=== PATIENT | male | born 1995 | race Caucasian/White ===

== ENCOUNTER 2019-08-27 19:16 | Emergency (ER) | payer SELFPAY ==
[2019-08-27 19:26] VITALS: BP 133/77; PULSE 93; RESP 16; TEMP 36.8; O2SAT 99; BMI 23.6
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
[2019-08-27 20:01] VITALS: RESP 16
== END 2019-08-27 20:02 | disposition home or self-care (01) ==
PROVIDERS: Emergency Provider Physician Assistant; PCP Nurse Practitioner Family
DX: T21.22XA Burn of second degree of abdominal wall, initial encounter (principal); T22.291A Burn of second degree of multiple sites of right shoulder and upper limb, except wrist and hand, initial encounter; T24.291A Burn of second degree of multiple sites of right lower limb, except ankle and foot, initial encounter; X08.8XXA Exposure to other specified smoke, fire and flames, initial encounter; F17.210 Nicotine dependence, cigarettes, uncomplicated
CPT/HCPCS: 12345; 99281; 99282

== ENCOUNTER 2021-01-13 01:50 | Emergency (ER) | payer SELFPAY ==
[2021-01-13 02:00] VITALS: BP 138/81; PULSE 114; RESP 20; TEMP 36.1; O2SAT 94; BMI 23.6
--- NOTE | 2021-01-13 02:34 | XRR_ITS ---
PROCEDURE INFORMATION: Exam: XR Cervical Spine Exam date and time: 01/13/2021 2:34 AM Age: 25 years old Clinical indication: Patient HX: C/O neck pain after lifting a recliner several days ago TECHNIQUE: Imaging protocol: XR of the cervical spine. Views: 2 or 3 views. COMPARISON: No relevant prior studies available. FINDINGS: Bones/joints: Normal. No acute fracture. Normal alignment. Soft tissues: Unremarkable. XR/XR cervical spine 3V* [id number] IMPRESSION: No acute findings. Radiation Dose CTDIVOL = (mGy): DLP = (mGy-cm)
--- NOTE | 2021-01-13 02:47 | W.ED.NECK ---
HPI - Neck Pain/Injury General: Chief Complaint: Neck Pain/Injury Stated Complaint: Neck Injury Time Seen by Provider: 01/13/21 01:58 History of Present Illness: HPI Narrative: 25-year-old male states that he lifted a recliner over his head around a week ago. He heard a pop, and has experienced upper and mid neck pain in the midline and just to the right since that time. He hears a grinding sensation in his upper neck when turning his head. He is experiencing stiffness with movement as well. He denies any fever. No paresthesias. No weakness. No radicular symptoms. No headache. No dizziness. MD complaint: neck pain Onset (ago): day(s) Place: home Radiation: right lateral Severity: moderate Quality: aching and other Duration: constant and progressively worsening Relieving factors: none Exacerbating factors: movement of neck Context: other Associated symptoms: Denies dysphagia, difficulty walking, dizziness, fevers/chills, headache(s), nausea, tingling or weakness Treatments prior to arrival: none Review of Systems Const: Denies: fever(s) or chills Eyes: Denies: change in vision Card: Denies: chest pain GI: Denies: nausea or dysphagia Neuro: Denies: headache(s), difficulty walking or dizziness PFSH ED PFSH: Surgical History History of surgery on arm left arm Social History Smoking and tobacco status: current every day smoker cigarettes Packs smoked per day: 2 Alcohol intake: never Lives independently: Yes Housing: House Marital status: Single History of recent travel: No Physical Exam Const: COMMON NORMALS: no acute distress, patient oriented x3 and alert HENMT: COMMON NORMALS: normocephalic and atraumatic HEAD & SCALP: normocephalic and atraumatic Eye: COMMON NORMALS: Equal, round and reactive pupils present and EOMs intact bilaterally PUPIL: Yes Equal, round and reactive pupils present Neck/C-Spine: COMMON NORMALS: full ROM GENERAL: Yes normal visual inspection and Yes trachea midline CERVICAL SPINE: Yes cervical ROM normal, Yes Cervical spine tenderness (Mild C1-C2, mild C5), No step off deformity and No Paracervical spasm Chest: COMMONS NORMALS: normal inspection of the chest Resp: COMMON NORMALS: normal respiratory effort and No use of accessory muscles Cardio: COMMON NORMALS: regular rate and regular rhythm RATE: regular rate RHYTHM: regular rhythm Neuro: COMMON NORMALS: patient oriented x3 SENSORIUM/ORIENTATION: Yes alert Course Vital Signs: Vital signs: Vital Signs Temperature 96.9 F L 01/13/21 02:00 Pulse Rate 114 H 01/13/21 02:00 Respiratory Rate 20 H 01/13/21 02:00 Blood Pressure 138/81 01/13/21 02:00 Pulse Oximetry 94 01/13/21 02:00 MDM - Neck Pain/Injury MDM Narrative: Medical decision making narrative: Exam is benign. Pt has full ROM Xray C spine IMPRESSION: No acute findings. Discharge Plan Discharge Patient Disposition: Home Clinical Impression: Strain of neck muscle Qualifiers: Encounter type: initial encounter Qualified Code(s): S16.1XXA - Strain of muscle, fascia and tendon at neck level, initial encounter Condition: Stable Prescriptions: No Action doxycycline hyclate 100 mg capsule 100 mg PO BID 10 Days Qty: 20 RF: 0 albuterol sulfate [ProAir HFA] 90 mcg/actuation HFA aerosol inhaler 2 puff inhalation QID PRN (Reason: shortness of breath or wheezing) 30 Days Qty: 6.7 RF: 2 prednisone 10 mg tablets,dose pack See Rx Instructions PO PER PKG DIR Qty: 21 RF: 0 Discharge Orders: Discharge ED (Routine); Ordered 01/13/21 Ordered By: Marquis Wright Referrals: Denia Figueredo FNP-C [Primary Care Provider] - 4-7 days Patient Instructions: Cervical Strain Activity Restrictions/Additional Instructions: Return for worsening headache, mental status changes, extreme headache, weakness to an extremity, other concerning symptoms. Follow-up with your doctor if symptoms persist. Coding Level of Care Code ED Student Services Counselor for Mario Fwedson Exam Detailed
[2021-01-13 03:43] VITALS: BP 100/70; PULSE 80; RESP 18; O2SAT 97
== END 2021-01-13 03:49 | disposition home or self-care (01) ==
PROVIDERS: Emergency Provider Emergency Medicine; PCP Nurse Practitioner Family
DX: S16.1XXA Strain of muscle, fascia and tendon at neck level, initial encounter (principal); F17.210 Nicotine dependence, cigarettes, uncomplicated; X50.0XXA Overexertion from strenuous movement or load, initial encounter
CPT/HCPCS: 72040; 99282

== ENCOUNTER 2021-03-03 11:31 | Emergency (ER) | payer SELFPAY ==
[2021-03-03 12:04] VITALS: BP 120/81; RESP 18; TEMP 36.7; O2SAT 98; BMI 23.2
--- NOTE | 2021-03-03 12:20 | ED_ITS ---
HPI - General Adult General: Chief complaint: General Medical Stated complaint: GROWTH ON L EAR Time Seen by Provider: 03/03/21 12:14 History of Present Illness: HPI narrative: Patient presents with a cyst that in front of his right earlobe been present times a year it got bigger over the last few days Onset (ago): year(s) Associated symptoms: Reports no associated symptoms Review of Systems Const: Denies: fever(s) or chills Skin/Breast: Reports: skin tenderness (In front her right earlobe, cyst present x1 year) Psych: Denies: anxiety or depression PFS ED PFSH: Surgical History History of surgery on arm left arm Social History Smoking and tobacco status: current every day smoker cigarettes Packs smoked per day: 2 Alcohol intake: never Lives independently: Yes Housing: House Marital status: Single History of recent travel: No Physical Exam Const: COMMON NORMALS: no acute distress Psych: COMMON NORMALS: mental status grossly normal Skin: OTHER: Patient has a small lump in front of his right earlobe underneath the skin. It is tender. There is no erythema redness noted to it. No drainage. Consistent with an inclusion cyst. Course Vital Signs: Vital signs: Vital Signs Temperature 98.1 F 03/03/21 12:04 Respiratory Rate 18 03/03/21 12:04 Blood Pressure 120/81 03/03/21 12:04 Pulse Oximetry 98 03/03/21 12:04 Discharge Plan Discharge Patient Disposition: Home Clinical Impression: Sebaceous cyst Condition: Stable Prescriptions: No Action doxycycline hyclate 100 mg capsule 100 mg PO BID 10 Days Qty: 20 RF: 0 albuterol sulfate [ProAir HFA] 90 mcg/actuation HFA aerosol inhaler 2 puff inhalation QID PRN (Reason: shortness of breath or wheezing) 30 Days Qty: 6.7 RF: 2 prednisone 10 mg tablets,dose pack See Rx Instructions PO PER PKG DIR Qty: 21 RF: 0 Discharge Orders: Discharge ED (Routine); Ordered 03/03/21 Ordered By: Joe Welsh Referrals: Denia Figueredo FNP-C [Primary Care Provider] - Discharge Diet: Usual diet Discharge Activity: Resume usual activity Patient Instructions: Epidermal Inclusion Cysts (ED) Activity Restrictions/Additional Instructions: Follow-up your primary care provider or laboratory animal facility supervisor they have cyst resolved. Coding Level of Care Code ED Qi Specialist for Mario Heck
--- NOTE | 2021-03-03 12:29 | PC.NURSE ---
reviewed discharge with patient, pt verbalized understanding of all instructions and follow up. pt ambulated with belongings from the ED
== END 2021-03-03 12:32 | disposition home or self-care (01) ==
PROVIDERS: Emergency Provider Nurse Practitioner Family; PCP Nurse Practitioner Family
DX: L72.3 Sebaceous cyst (principal); F17.210 Nicotine dependence, cigarettes, uncomplicated
CPT/HCPCS: 99282

== ENCOUNTER 2021-07-09 11:27 | Emergency (ER) | payer SELFPAY ==
[2021-07-09 11:46] VITALS: BP 119/78; PULSE 87; RESP 18; TEMP 36.6; O2SAT 98; BMI 26.6
[2021-07-09 11:59] VITALS: BP 119/78; PULSE 87; RESP 18; O2SAT 98
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
== END 2021-07-09 12:24 | disposition home or self-care (01) ==
PROVIDERS: Emergency Provider Physician Assistant; PCP Nurse Practitioner Family
DX: K08.89 Other specified disorders of teeth and supporting structures (principal); K02.9 Dental caries, unspecified; R59.1 Generalized enlarged lymph nodes; S02.5XXA Fracture of tooth (traumatic), initial encounter for closed fracture; X58.XXXA Exposure to other specified factors, initial encounter
CPT/HCPCS: 99283

== ENCOUNTER → 2021-08-20 15:52 | Outpatient (BNVA) | payer SELFPAY | PROVIDERS: PCP Nurse Practitioner Family; Visit Provider Nurse Practitioner Family | DX: J02.9 Acute pharyngitis, unspecified (principal); J40 Bronchitis, not specified as acute or chronic; K59.00 Constipation, unspecified | CPT/HCPCS: 87071; 87880 ==

== ENCOUNTER → 2021-08-27 15:37 | Outpatient (BNVA) | payer SELFPAY | PROVIDERS: PCP Nurse Practitioner Family; Visit Provider Nurse Practitioner Family | DX: K59.00 Constipation, unspecified (principal) | CPT/HCPCS: 80053; 84443; 85025 ==

== ENCOUNTER 2021-08-28 08:42 | Outpatient (CLI) | payer SELFPAY ==
--- NOTE | 2021-08-28 09:02 | XR_ITS ---
WS: [id number] XR abdomen 1V* [id number] REASON FOR EXAM: K59.00 - Constipation, unspecified FINDINGS: No free air or retroperitoneal air. Unremarkable bowel gas pattern. No significant calcifications in the abdomen or pelvis. No mass identified. Normal lumbar spine and bony pelvis. XR/XR abdomen 1V* [id number] IMPRESSION: No significant abnormality.
== END 2021-08-28 08:43 | disposition home or self-care (01) ==
PROVIDERS: PCP Nurse Practitioner Family; Visit Provider Nurse Practitioner Family
DX: K59.00 Constipation, unspecified (principal)
CPT/HCPCS: 74018

== ENCOUNTER 2021-10-31 14:25 | Emergency (ER) | payer SELFPAY ==
[2021-10-31 14:29] VITALS: BP 127/92; PULSE 112; RESP 16; TEMP 36.6; O2SAT 98
--- NOTE | 2021-10-31 14:34 | ECG_ITS ---
[facility] Test Date: 2021-10-31 Pat Name: Star Lomeli Department: Room: Gender: Male Smutter: : 1995 Requested By: Radny Singh Order Number: [id number] Robin MD: Noa Salter M.D. Measurements Intervals [place] Rate: 97 P: 73 MI: 145 QRS: 76 QRSD: 95 T: -26 QT: 327 QTc: 417 Interpretive Statements SINUS RHYTHM WITH MARKED SINUS ARRHYTHMIA POSSIBLE RIGHT ATRIAL ENLARGEMENT POSSIBLE LEFT ATRIAL ENLARGEMENT POSSIBLE LEFT VENTRICULAR HYPERTROPHY ST DEVIATION AND MODERATE T-WAVE ABNORMALITY, CONSIDER INFERIOR ISCHEMIA No previous ECG available for comparison Electronically Signed On 11-01-2021 13:20:16 CDT by Noa Salter M.D. [id number]
--- NOTE | 2021-10-31 14:53 | XR_ITS ---
WS: [id number] Exam: XR chest 1V portable [id number] Date/Time of Exam: 10/31/2021 2:11 PM Reason For Exam: dyspnea/cough Comparison 03/14/2018. Findings: The lungs are clear and fully expanded. Costophrenic angles are sharp. No infiltrates. Bronchovascula r relief appears normal. Cardiac silhouette is unremarkable. Bony elements are intact. XR/XR chest 1V portable [id number] IMPRESSION: Unremarkable chest radiograph.
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
[2021-10-31 15:37] VITALS: BP 140/92; PULSE 93; RESP 18; O2SAT 99
== END 2021-10-31 15:38 | disposition home or self-care (01) ==
PROVIDERS: Emergency Provider Family Medicine; PCP Nurse Practitioner Family
DX: J45.909 Unspecified asthma, uncomplicated (principal); J31.2 Chronic pharyngitis; F17.210 Nicotine dependence, cigarettes, uncomplicated
CPT/HCPCS: 71045; 93005; 99284

== ENCOUNTER 2021-12-19 09:21 | Emergency (ER) | payer SELFPAY ==
[2021-12-19 09:26] VITALS: BP 124/76; PULSE 88; RESP 14; TEMP 36.4; O2SAT 97; BMI 25.7
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
== END 2021-12-19 09:52 | disposition home or self-care (01) ==
PROVIDERS: Emergency Provider Physician Assistant; PCP Nurse Practitioner Family
DX: Z71.1 Person with feared health complaint in whom no diagnosis is made (principal)
CPT/HCPCS: 99282

== ENCOUNTER 2021-12-22 02:53 | Emergency (ER) | payer SELFPAY ==
[2021-12-22 02:57] VITALS: BP 119/71; PULSE 73; RESP 18; TEMP 36.6; O2SAT 98; BMI 26.4
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
== END 2021-12-22 04:35 | disposition home or self-care (01) ==
PROVIDERS: Emergency Provider Emergency Medicine; PCP Nurse Practitioner Family
DX: R59.0 Localized enlarged lymph nodes (principal)
CPT/HCPCS: 99282

== ENCOUNTER 2022-01-05 09:47 | Emergency (ER) | payer SELFPAY ==
[2022-01-05 10:02] VITALS: BP 114/74; PULSE 102; RESP 18; TEMP 36.6; O2SAT 98
[2022-01-05 10:18] VITALS: PULSE 97; RESP 16; O2SAT 97
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
== END 2022-01-05 11:19 | disposition home or self-care (01) ==
PROVIDERS: Emergency Provider Physician Assistant; PCP Nurse Practitioner Family
DX: J02.9 Acute pharyngitis, unspecified (principal); F17.210 Nicotine dependence, cigarettes, uncomplicated
CPT/HCPCS: 99283

== ENCOUNTER → 2022-01-06 11:35 | Outpatient (BNVA) | payer SELFPAY | PROVIDERS: PCP Nurse Practitioner Family; Visit Provider Nurse Practitioner Family | DX: R59.0 Localized enlarged lymph nodes (principal); J02.9 Acute pharyngitis, unspecified | CPT/HCPCS: 80053; 85025 ==

== ENCOUNTER 2022-02-02 18:52 | Emergency (ER) | payer SELFPAY ==
[2022-02-02 19:16] VITALS: BP 127/84; PULSE 104; RESP 18; TEMP 37; O2SAT 98; BMI 25.4
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
[2022-02-02] MEDS: clindamycin 150 mg Capsule 300 MG PO (20:52)
== END 2022-02-02 20:57 | disposition home or self-care (01) ==
PROVIDERS: Emergency Provider Nurse Practitioner Family; PCP Nurse Practitioner Family
DX: K04.7 Periapical abscess without sinus (principal); F17.210 Nicotine dependence, cigarettes, uncomplicated
CPT/HCPCS: 99283

== ENCOUNTER 2022-07-23 12:14 | Emergency (ER) | payer SELFPAY ==
[2022-07-23 12:32] VITALS: BP 132/88; PULSE 102; RESP 18; TEMP 36.9; O2SAT 99; BMI 28.8
--- NOTE | 2022-07-23 12:37 | XR_ITS ---
WS: [id number] Portable AP upright chest, 07/23/2022 Clinical Data: cough/congestion Comparison: Chest, 10/31/2021 Findings: No nodules, masses or effusions are seen. The heart is normal. The pulmonary vascularity is not increased. No pneumonia or pneumothorax is seen. XR/XR chest 1V portable [id number] Impression: Negative chest.
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
[2022-07-23 13:22] VITALS: BP 132/88; PULSE 95; O2SAT 98
== END 2022-07-23 13:23 | disposition home or self-care (01) ==
PROVIDERS: Emergency Provider Physician Assistant; PCP Nurse Practitioner Family
DX: J40 Bronchitis, not specified as acute or chronic (principal); F17.210 Nicotine dependence, cigarettes, uncomplicated
CPT/HCPCS: 71045; 99283

== ENCOUNTER 2023-01-05 17:34 | Emergency (ER) | payer SELFPAY ==
--- NOTE | 2023-01-05 17:35 | XRR_ITS ---
PROCEDURE INFORMATION: Exam: XR Chest Exam date and time: 01/05/2023 5:48 PM Age: 27 years old Clinical indication: Cough TECHNIQUE: Imaging protocol: Radiologic exam of the chest. Views: 1 view. COMPARISON: CR XR chest 1V portable [id number] 07/23/2022 12:46 PM FINDINGS: Lungs: Unremarkable. No consolidation. Pleural spaces: Unremarkable. No pleural effusion. No pneumothorax. Heart/Mediastinum: Unremarkable. No cardiomegaly. Bones/joints: Visualized osseous structures show no acute abnormality. Other findings: No significant change with previous exam. XR/XR chest 1V portable [id number] IMPRESSION: No acute cardiopulmonary abnormality.
[2023-01-05 17:36] VITALS: BP 159/81; PULSE 86; RESP 16; TEMP 36.7; O2SAT 96; BMI 31.1
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
[2023-01-05 18:11] LABS: Basophils # 0.1 10^3/uL (0.0-0.1); Basophils % 0.6 %; Eosinophils # 0.5 10^3/uL (0.0-0.8); Eosinophils % 5.1 %; Hematocrit 50.2 % (37-53); Lymphocytes # 3.2 10^3/uL (0.8-4.8); Lymphocytes % 33.7 %; Mean Corpuscular HGB Conc 33.9 g/dL (30-55); Mean Corpuscular Hemoglobin 29.8 pg (27-33); Mean Corpuscular Volume 88.1 fl (82-101); Mean Platelet Volume 11.3 fL (7.4-10.4); Monocytes # 0.7 10^3/uL (0.2-0.9); Monocytes % 7.5 %; Neutrophils # 4.93 10^3/uL (1.8-7.7); Neutrophils % 52.8 %; Nucleated Red Blood Cells % 0 %; Platelet Count 224 10^3/cmm (157-399); Red Cell Distribution Width 13.7 % (12.1-15.1); White Blood Count 9.35 10^3/uL (3.29-11.43)
[2023-01-05 18:30] LABS: Alanine Aminotransferase 25 U/L (0-41); Albumin Level 4.6 g/dL (3.5-5.2); Alkaline Phosphatase 63 U/L (40-130); Anion Gap 14.4 (5-19); Aspartate Amino Transferase 18 U/L (0-40); Blood Urea Nitrogen 11 mg/dL (6-20); Calcium 9.4 mg/dL (8.5-10.5); Carbon Dioxide 27 mmol/L (22-29); Chloride 107 mmol/L (98-107); Globulin 2.4 g/dL (1.3-4.6); Glomerular Filtration Rate 73.8 mL/min (90-130); Glucose 107 mg/dL (65-115); Osmolality Calculated 298 mOsm/kg (285-295); Potassium 4.4 mmol/L (3.5-5.1); Sodium 144 mmol/L (136-145)
[2023-01-05 19:52] LABS: Add Urine Microscopic? NO; Charge for UA Resulting for Rev
[2023-01-05 19:58] LABS: Bilirubin Urine 1+ (Negative); Blood Urine Neg (Negative); Glucose Urine UA Norm (Normal); Ketones Urine Negative (Negative); Leukocyte Esterase Urine Negative (Negative); Nitrate Urine Negative (Negative); Protein Urine Neg (Negative); Specific Gravity, Urine 1.025 (1.005-1.030); Urine Appearance Clear (CLEAR); Urine Color Dark Yellow (Yellow); Urobilinogen Urine 1 mg/dL (Negative); pH Urine 6 (5-7)
== END 2023-01-05 21:12 | disposition home or self-care (01) ==
PROVIDERS: Emergency Provider Family Medicine; PCP Nurse Practitioner Family
DX: R20.2 Paresthesia of skin (principal); F17.210 Nicotine dependence, cigarettes, uncomplicated
CPT/HCPCS: 36415; 71045; 80053; 81003; 85025; 99284

== ENCOUNTER 2023-05-13 09:38 | Emergency (ER) | payer SELFPAY ==
[2023-05-13 09:42] VITALS: BP 139/90; PULSE 105; RESP 17; TEMP 36.9; O2SAT 97; BMI 34.2
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
[2023-05-13] MEDS: ketorolac 60 mg/2 mL INJ IM (10:20)
[2023-05-13 10:24] VITALS: BP 138/92; PULSE 101; O2SAT 96
[2023-05-13] MEDS: doxycycline 100 mg Tablet PO (10:56)
[2023-05-13] MEDS: dexamethasone 10 mg/mL INJ IM (10:57)
== END 2023-05-13 11:05 | disposition home or self-care (01) ==
PROVIDERS: Emergency Provider Emergency Medicine; PCP Nurse Practitioner Family
DX: J18.9 Pneumonia, unspecified organism (principal); F17.210 Nicotine dependence, cigarettes, uncomplicated
CPT/HCPCS: 71046; 96372; 99284; J1100; J1885

== ENCOUNTER 2024-05-15 14:49 | Emergency (ER) | payer SELFPAY ==
[2024-05-15 14:55] VITALS: BP 128/70; PULSE 89; TEMP 36.6; O2SAT 98; BMI 37.0
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
== END 2024-05-15 15:34 | disposition home or self-care (01) ==
PROVIDERS: Emergency Provider Emergency Medicine; PCP Nurse Practitioner Family
DX: S61.213A Laceration without foreign body of left middle finger without damage to nail, initial encounter (principal); X58.XXXA Exposure to other specified factors, initial encounter; F17.210 Nicotine dependence, cigarettes, uncomplicated
CPT/HCPCS: 12001; 99282

== ENCOUNTER 2024-08-16 09:37 | Emergency (ER) | payer SELFPAY ==
[2024-08-16 09:46] VITALS: BP 132/92; PULSE 93; RESP 16; TEMP 36.9; O2SAT 97; BMI 34.9
--- NOTE | 2024-08-16 09:46 | XR_ITS ---
WS: [id number] Portable AP upright chest, 08/16/2024 Clinical Data: dyspnea/cough Comparison: Two-view chest, 05/13/2023 Findings: No nodules, masses or effusions are seen. The heart is normal. The pulmonary vascularity is not increased. No pneumonia or pneumothorax is seen. XR/XR chest 1V portable [id number] Impression: Negative chest.
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
[2024-08-16 10:16] VITALS: BP 113/85; PULSE 77; O2SAT 98
== END 2024-08-16 10:27 | disposition home or self-care (01) ==
PROVIDERS: Emergency Provider Family Medicine; PCP Nurse Practitioner Family
DX: B34.9 Viral infection, unspecified (principal); F17.210 Nicotine dependence, cigarettes, uncomplicated
CPT/HCPCS: 71045; 99283

== ENCOUNTER 2024-08-17 22:07 | Emergency (ER) | payer SELFPAY ==
[2024-08-17 22:15] VITALS: BP 117/75; PULSE 100; RESP 14; TEMP 36.7; O2SAT 98
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
[2024-08-18] MEDS: tetanus-dipt-pertussis 0.5 mL SDV IM (00:36)
--- NOTE | 2024-08-18 01:00 | PC.NURSE ---
wound closed with sutures. Wound dressed with 2x2 and held in place with coban. distal PMS intact.
[2024-08-18 01:43] VITALS: BP 121/65; PULSE 88; RESP 17; O2SAT 96
== END 2024-08-18 01:10 | disposition home or self-care (01) ==
PROVIDERS: Emergency Provider Nurse Practitioner; PCP Nurse Practitioner Family
DX: S91.311A Laceration without foreign body, right foot, initial encounter (principal); F17.210 Nicotine dependence, cigarettes, uncomplicated; W25.XXXA Contact with sharp glass, initial encounter
CPT/HCPCS: 12001; 90471; 90715; 99283

== ENCOUNTER 2024-08-29 00:23 | Emergency (ER) | payer SELFPAY ==
--- OUTSIDE RECORDS SUMMARY | 2024-08-29 00:26 | XMS_ITS | Clinical Summary ---
Author Organization [facility] Address [address] [facility] Attn: Epic Prelude ADT [place] [address] Care Team Providers Care Energy Broker Name Role Phone Unavailable Primary Care Provider Unavailabl e Allergies No known active allergies Medications albuterol (PROVENTIL,VENTOL IN) 2.5 mg /3 mL (0.083 %) Solution for Nebulization Take 2.5 mg by inhalation one time only. 9 Active Social History Tobacco Use Types Packs/Day Years Used Date Smoking Tobacco: Every Day Cigarettes Smokeless Tobacco: Never Alcohol Use Standard Drinks/Week Comments No 0 (1 standard drink = 0.6 oz pur e alcohol) Sex and Gender Information Value Date Recorded Sex Assigned at Not on file Legal Sex Male 12:06 AM REPLENISHMENT BUYER Gender Identity Not on file Sexual Orientation Not on file Last Filed Vital Signs Vital Sign Reading Time Taken Comments Blood Pressure 119/70 03/06/2018 3:57 PM REPLENISHMENT BUYER Pulse 100 03/06/2018 2:58 PM REPLENISHMENT BUYER Temperature 36.6 C (97.8 F) 03/06/2018 3:57 PM REPLENISHMENT BUYER Respiratory Rate 20 03/06/2018 3:57 PM REPLENISHMENT BUYER Oxygen Saturation - - Inhaled Oxygen Concentration - - Weight 74 kg (163 lb 3.2 oz) 03/06/2018 2:31 PM REPLENISHMENT BUYER Height 165.1 cm (5' 5 ) 03/06/2018 2:31 PM REPLENISHMENT BUYER Body Mass Index 27.16 03/06/2018 2:31 PM REPLENISHMENT BUYER Plan of Treatment Health Maintenance Due Date Last Done Comments HPV VACCINES (1 - Male 3-dose series) 2012 DTAP/TDAP/TD VACCINES (1 - Tdap) 2016 HEPATITIS B VACCINES (1 of 3 - 19+ 3-dose series) 08/30 INFLUENZA VACCINE (#1) 2023
--- OUTSIDE RECORDS SUMMARY | 2024-08-29 00:26 | XMS_ITS | Clinical Summary ---
Author Organization [facility] Address [address] [place] [address] Phone Care Team Providers Care Labor Supervisor Name Role Phone Unavailable Primary Care Provider Unavailabl e Allergies No known active allergies Medications albuterol (PROVENTIL,VENTOL IN) 2.5 mg /3 mL (0.083 %) Solution for Nebulization Take 2.5 mg by inhalation one time only. Active Social History Tobacco Use Types Packs/Day Years Used Date Smoking Tobacco: Every Day Cigarettes Smokeless Tobacco: Never Alcohol Use Standard Drinks/Week Comments No 0 (1 standard drink = 0.6 oz pur e alcohol) Sex and Gender Information Value Date Recorded Sex Assigned at Not on file Legal Sex Male 6:43 PM BUS MECHANIC Gender Identity Not on file Sexual Orientation Not on file Last Filed Vital Signs Vital Sign Reading Time Taken Comments Blood Pressure 119/70 03/06/2018 3:57 PM BUS MECHANIC Pulse 100 03/06/2018 2:58 PM BUS MECHANIC Temperature 36.6 C (97.8 F) 03/06/2018 3:57 PM BUS MECHANIC Respiratory Rate 20 03/06/2018 3:57 PM BUS MECHANIC Oxygen Saturation 97% 03/06/2018 3:57 PM BUS MECHANIC Inhaled Oxygen Concentration - - Weight 74 kg (163 lb 3.2 oz) 03/06/2018 2:31 PM BUS MECHANIC Height 165.1 cm (5' 5 ) 03/06/2018 2:31 PM BUS MECHANIC Body Mass Index 27.16 03/06/2018 2:31 PM BUS MECHANIC Plan of Treatment Health Maintenance Due Date Last Done Comments HPV VACCINES (1 - Male 3-dose series) 2012 DTAP/TDAP/TD VACCINES (1 - Tdap) 2016 HEPATITIS B VACCINES (1 of 3 - 19+ 3-dose series) 08/30 INFLUENZA VACCINE (#1) 2023 Insurance * Guarantor: OLIVIER LANZA Account Type Relation to Patient Date of Phone Billing Address Personal/Family Mother [address] [place], [place] [address] [place] [address] [place], [place] [address] [place] * Guarantor: Star Lanza Account Type Relation to Patient Date of Phone Billing Address Personal/Family Self [address] [place], [place] [address] [address] [place], [place] [address]
[2024-08-29 00:34] VITALS: BP 134/76; PULSE 115; RESP 16; TEMP 36.6; O2SAT 98; BMI 36.0
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
[2024-08-29 00:55] VITALS: BP 134/76; PULSE 101; RESP 16; O2SAT 99
== END 2024-08-29 00:59 | disposition home or self-care (01) ==
PROVIDERS: Emergency Provider Emergency Medicine; PCP Nurse Practitioner Family
DX: J06.9 Acute upper respiratory infection, unspecified (principal); F17.210 Nicotine dependence, cigarettes, uncomplicated
CPT/HCPCS: 96372; 99284; J1100; J9999